=== PATIENT | male | born 1975 | race Caucasian/White ===

== ENCOUNTER 2022-06-08 13:48 | Outpatient (CLI) | payer OTHER ==
[2022-06-08] MEDS ORDERED: GADOBUTROL 7.5 MMOL/7.5 ML VIAL IVP ONE (15:07)
--- NOTE | 2022-06-08 15:17 | MRI Report ---
PROCEDURE: LUMBAR SPINE W/WO INDICATIONS: LUMBAR RADICULOPATHY CONTRAST: GADAVIST 8.2ML TECHNIQUE: Noncontrast sagittal T1 spin echo and T2 fast spin echo, sagittal STIR, axial T1 and T2 fast spin ech o through the lumbar spine. In cases with scoliosis, additional coronal T2 fast spin echo may be per formed. After the administration of contrast, sagittal and axial T1 spin echo with fat saturation th rough the lumbar spine. COMPARISON: None. FINDINGS: Postsurgical changes of S1 left hemilaminotomy for microdiscectomy. No abnormal enhancement at the la minectomy site or within the epidural space at the operative level. Normal morphology, signal intensi ty, and alignment of the lumbar spine. No abnormal enhancement in the lumbar spine region. Normal pos ition and appearance of the conus. T12-L1: No spinal canal or neural foraminal stenosis. L1-L2: No spinal canal or neural foraminal stenosis. L2-L3: No spinal canal or neural foraminal stenosis. L3-L4: No spinal canal stenosis. Mild neural foraminal narrowing due to foraminal components of a d iffuse disc bulge and mild facet hypertrophy. L4-L5: Diffuse disc bulge flattens the ventral thecal sac with mild displacement of the descending L5 nerve roots in the left subarticular zone. Foraminal component of the disc bulge and facet hypertr ophy combine to produce moderate left and mild right neural foraminal stenosis. There is abutment of the exiting left L4 nerve root by disc material within the neural foramen. L5-S1: Diffuse disc bulge without mass effect upon the descending S1 nerve roots. Foraminal compone nts of the disc bulge and facet hypertrophy combine to produce moderate left and mild right neural fo raminal stenosis with abutment and flattening of the exiting left L5 nerve root within the neural for amen. IMPRESSION: Lower lumbar spine degenerative changes as detailed above. Correlate for any corresponding radicular symptoms. Postoperative changes of L5-S1 microdiscectomy. No findings of enhancing epidural fibrosis. Reviewed by: Tyrese Mabry MD on 06/08/2022 3:15 PM PST Approved by: Tyrese Mabry MD on 06/08/2022 3:15 PM PST Station ID: [id number]
== END 2022-06-08 13:49 | disposition home or self-care (01) ==
LOC: DI 13:48
PROVIDERS: ATTEND Student in an Organized Health Care Education/Training Program
DX: M51.16 Intervertebral disc disorders with radiculopathy, lumbar region (principal); M47.26 Other spondylosis with radiculopathy, lumbar region; M48.061 Spinal stenosis, lumbar region without neurogenic claudication; M51.17 Intervertebral disc disorders with radiculopathy, lumbosacral region; M47.27 Other spondylosis with radiculopathy, lumbosacral region; M48.07 Spinal stenosis, lumbosacral region
CPT/HCPCS: 72158; A9585

== ENCOUNTER 2023-02-03 14:06 | Outpatient (CLI) | payer OTHER ==
--- NOTE | 2023-02-03 16:34 | MRI Report ---
PROCEDURE: CERVICAL SPINE WO INDICATIONS: CERVICALGIA TECHNIQUE: Noncontrast sagittal T1 spin echo and T2 fast spin echo, sagittal STIR, foraminal oblique sagittal T2 fast spin echo, and axial gradient echo or T2 fast spin echo through the cervical spine. COMPARISON: None. FINDINGS: Image quality: Excellent. Alignment and Curvature: There is loss of normal cervical lordosis. Bone Marrow: Marrow demonstrates normal overall signal. Minimal reactive signal throughout the endp lates of the cervical spine. Spinal Cord: Visualized spinal cord has normal size and signal. No cerebellar tonsillar herniation. Paraspinous Soft Tissues: No paravertebral masses. Prevertebral soft tissues are normal in thicknes s. C2-C3: Moderate disc desiccation. Mild diffuse disc bulge. Mild facet and uncovertebral hypertrophy bilaterally. Mild canal stenosis. Moderate bilateral foraminal stenosis. C3-C4: Moderate disc desiccation. Mild diffuse disc bulge. Mild facet and uncovertebral hypertrophy . Moderate canal stenosis. Moderate bilateral foraminal stenosis. C4-C5: Moderate disc desiccation. Mild diffuse disc bulge. Mild facet and uncovertebral hypertrophy. Moderate canal stenosis. Mild bilateral foraminal stenosis. C5-C6: Moderate disc desiccation. Moderate diffuse disc bulge. Mild facet and uncovertebral hypertro phy. Moderate to severe canal stenosis. Minimal cord flattening. Moderate bilateral foraminal stenosi s. C6-C7: Moderate disc desiccation. Mild diffuse disc bulge. Mild facet and uncovertebral hypertrophy. Moderate canal stenosis. Moderate bilateral foraminal stenosis. C7-T1: Mild disc desiccation. No significant canal nor foraminal stenosis IMPRESSION: 1. Multilevel degenerative disc and facet disease, as well as uncovertebral hypertrophy. 2. Multilevel canal stenoses, worst at C5-C6 where there is minimal cord flattening. 3. Multilevel foraminal stenoses, worst at C2-C3, C3-C4, C5-C6, and C6-C7 where there are moderate fo raminal stenoses. Reviewed by: Yuliya Brannon MD on 02/03/2023 4:32 PM PDT Approved by: Yuliya Brannon MD on 02/03/2023 4:32 PM PDT Station ID: [id number]
== END 2023-02-03 14:07 | disposition home or self-care (01) ==
LOC: DI 14:06
PROVIDERS: ATTEND Student in an Organized Health Care Education/Training Program
DX: M47.812 Spondylosis without myelopathy or radiculopathy, cervical region (principal); M50.31 Other cervical disc degeneration, high cervical region; M48.02 Spinal stenosis, cervical region